=== PATIENT | female | born 1985 | race Caucasian/White ===

== ENCOUNTER → 2017-08-31 09:00 | Outpatient (CLI) | payer OTHER, SELFPAY ==
--- NOTE | 2017-08-31 09:00 | DT_ITS ---
This patient was seen during an EMR downtime August 30, 2017 - September 06, 2017. This patient may have a combination of paper and electronic documentation or all paper documentation. All documentation is viewable within the e-chart portion of [facility] for each patient visit.
[2017-09-14 16:00] LABS: HPV APTIMA, High Risk Negative (Negative)
== END ==
PROVIDERS: Visit Provider Obstetrics & Gynecology
DX: Z12.4 Encounter for screening for malignant neoplasm of cervix (principal)
CPT/HCPCS: 88175; G0145

== ENCOUNTER → 2022-01-26 | Outpatient (CLI) | payer OTHER, SELFPAY ==
[2022-01-26 11:23] LABS: Ferritin 21 ng/mL (8-252); Iron 139 ug/dL (50-170); Thyroid Stim Hormone (TSH) 1.89 uIU/mL (0.358-3.74)
[2022-01-30 19:06] LABS: Testosterone, % Free 1.69 % (0.50-2.80); Testosterone, Free 0.24 ng/dL (0.10-0.85); Testosterone, Total 14 ng/dL (8-60)
[2022-02-06 14:20] LABS: HPV APTIMA, High Risk Negative (Negative)
== END | disposition home or self-care (01) ==
LOC: PAVLAB 10:34
PROVIDERS: Referring Provider Obstetrics & Gynecology; Visit Provider Obstetrics & Gynecology
DX: L65.9 Nonscarring hair loss, unspecified (principal)
CPT/HCPCS: 36415; 82627; 82728; 83540; 84402; 84403; 84443; 87624; 88175; 82626; G0145

== ENCOUNTER → 2023-11-22 | Outpatient (CLI) | payer OTHER, SELFPAY ==
--- NOTE | 2023-11-22 13:04 | BI_ITS ---
MAMMOGRAPHY - BILATERAL SCREENING REASON FOR EXAM: Female, 38 years old. Routine annual screening examination. PERTINENT HISTORY: Non-contributory. TECHNIQUE: Digital bilateral breast reanna (3D mammographic acquisition) in the CC and MLO projections. 2-D mediolateral oblique (MLO) and craniocaudad (CC) views of both breasts were obtained. CAD: Full Field Digital Mammography with Computer Added Detection was performed. COMPARISON: None. Baseline examination. FINDINGS: Breast Composition: The breasts are extremely dense, which lowers the sensitivity of mammography. There are no dominant masses or suspicious calcifications. No other significant abnormalities are identified. BI/SCRN MAMM (CAD)W/REANNA BILAT IMPRESSION: Negative screening mammogram. Yearly followup mammogram recommended. (A) ASSESSMENT CATEGORY: BIRADS Category 1: Negative. A letter regarding these results will be sent to the patient by the facility within 30 days. Approximately 10% of breast cancers are not detected by mammography. A normal mammogram should not delay biopsy of a clinically suspicious abnormality. [id number] Electronically Signed: Diallo Rogers MD at 14:03 EDT ,
== END | disposition home or self-care (01) ==
LOC: OPBI 13:03
PROVIDERS: Referring Provider Obstetrics & Gynecology; Visit Provider Obstetrics & Gynecology
DX: Z12.31 Encounter for screening mammogram for malignant neoplasm of breast (principal)
CPT/HCPCS: 77063; 77067

== ENCOUNTER → 2024-03-17 | Outpatient (CLI) | payer OTHER, SELFPAY ==
[2024-03-17 11:09] LABS: Absolute Lymphocyte Count 2.03 X10^3/uL (0.83-4.51); Absolute Neutrophil Count 3.6 X10^3/uL (2.0-7.7); Basophil# 0.04 X10^3/uL; Basophil% 0.6 % (0-1); Eosinophil# 0.12 X10^3/uL; Eosinophils% 1.9 % (0-5); Hematocrit 40.8 % (37-47); Hemoglobin 13.9 g/dL (12.0-15.0); Lymphocyte # 2.03 X10^3/ul (0.83-4.51); Lymphocyte % 32.7 % (19-41); Mean Corp Hgb Conc 34.1 g/dL (32-36); Mean Corpuscular Hgb 31.6 pg (27.0-32.0); Mean Corpuscular Volume 92.7 fL (81-99); Mean Platelet Vol. 10.3 fl (6.2-12.0); Monocyte# 0.39 X10^3/uL; Monocyte% 6.3 % (0-10); NRBC Flagged by Analyzer 0 % (0-5); Neutrophil # 3.61 X10^3/uL (2.7-7.7); Neutrophil % 58.2 % (47-70); Platelet Count 214 K/mm3 (150-450); RBC Distribution Width CV 11.7 % (11.6-14.6); RBC Distribution Width SD 39.6 fl (35.1-43.9); White Blood Count 6.2 K/mm3 (4.4-11.0)
[2024-03-17 11:33] LABS: Cholesterol 160 mg/dL (200); High Density Lipoprotein 64 mg/dL; Triglycerides 45 mg/dL; Very Low Density Lipoprotein 9 mg/dL (5-40)
[2024-03-20 14:07] LABS: Vitamin D 1,25-Dihydroxy 36.9 pg/mL (24.8-81.5)
== END | disposition home or self-care (01) ==
LOC: BWCLAB 08:16
PROVIDERS: Referring Provider Obstetrics & Gynecology; Visit Provider Obstetrics & Gynecology
DX: L65.9 Nonscarring hair loss, unspecified (principal); Z13.1 Encounter for screening for diabetes mellitus; R63.5 Abnormal weight gain
CPT/HCPCS: 36415; 80061; 82652; 83036; 84443; 85025

== ENCOUNTER → 2024-11-23 | Outpatient (CLI) | payer OTHER, SELFPAY ==
--- NOTE | 2024-11-23 10:00 | BI_ITS ---
EXAM: SCRN MAMM (CAD)W/REANNA BILAT DATE: 11/23/2024 CLINICAL HISTORY: F, Age 39 y/o , BREAST CANCER SCREENING No family history. TECHNIQUE: SCRN MAMM (CAD)W/REANNA BILAT COMPARISON: Prior exam(s) dated November 22, 2023.. FINDINGS: TISSUE DENSITY: The breasts are extremely dense, which lowers the sensitivity of mammography. Bilateral Breast Mammographic Findings: There is a 9.1 mm 6.6 mm well-defined nodule in the lateral slightly upper aspect of the right breast. Correlation with ultrasound recommended. No cluster of microcalcification is seen. BI/SCRN MAMM (CAD)W/REANNA BILAT IMPRESSION: 9.1 mm x 6.6 mm well-defined nodule in the lateral slightly upper aspect of the right breast as described. Sonographic correlation recommended. OVERALL FINAL ASSESSMENT BI-RADS 0: INCOMPLETE - NEED ADDITIONAL IMAGING EVALUATION. RECOMMENDATION: Ultrasound Recommended A letter with findings and recommendations will be mailed to the patient. Reading Location: [id number]
== END | disposition home or self-care (01) ==
LOC: OPBI 10:00
PROVIDERS: PCP Family Medicine; Referring Provider Obstetrics & Gynecology; Visit Provider Obstetrics & Gynecology
DX: Z12.31 Encounter for screening mammogram for malignant neoplasm of breast (principal)
CPT/HCPCS: 77063; 77067

== ENCOUNTER → 2024-12-01 | Outpatient (CLI) | payer OTHER, SELFPAY ==
--- NOTE | 2024-12-01 12:35 | US_ITS ---
PROCEDURE: BREAST LIMITED UNILATERAL 12/01/2024 REASON FOR EXAM: F, Age 39 y/o , ABD MAMM COMPARISON: 11/15/2024, 11/22/2023. TECHNIQUE: Procedure Code: [id number] Modality: US Procedure: BREAST LIMITED UNILATERAL FINDINGS: Ultrasound performed of the lateral right breast. Follow-up examination performed for the mass in the lateral right breast seen on the mammogram of 11/15/2024. On the present examination, there is a cyst with thin septations/cyst cluster in the right breast at 9 o'clock 3 cm from the nipple measuring 1.5 x 1.2 x 0.6 cm. This is the likely correlate for the mammographic finding. Also, there is additional cyst in the right breast at 9 o'clock 9 cm from the nipple measure 0.9 x 0.8 x 0.5 cm. There is an oval circumscribed mass with a fatty hilum in the right breast at 12 o'clock 7 cm from the nipple measuring 1.9 x 0.4 x 0.9 cm, this likely represents an intramammary lymph node. There is an oval circumscribed mass with a probable hilum in the right breast at 7 o'clock 7 cm from the nipple, measuring 1.9 x 1.2 x 0.8 cm, this likely represents an intramammary lymph node. US/Breast Limited Unilateral IMPRESSION: 1. Benign right breast cysts. 2. Benign intramammary lymph node in the right breast at 12 o'clock 7 cm from the nipple. 3. Probably benign mass in the right breast at 7 o'clock 7 cm from the nipple. Recommend follow-up short interval six-month diagnostic ultrasound of the right breast for further evaluation. BI-RADS 3: PROBABLY BENIGN. RECOMMENDATION: 6 Month Follow-up Reading Location: [id number]
== END | disposition home or self-care (01) ==
LOC: OPUS 12:33
PROVIDERS: PCP Family Medicine; Referring Provider Obstetrics & Gynecology; Visit Provider Obstetrics & Gynecology
DX: N63.15 Unspecified lump in the right breast, overlapping quadrants (principal)
CPT/HCPCS: 76642